=== PATIENT | female | born 1990 | race Caucasian/White ===

== ENCOUNTER 2017-11-03 17:47 | Emergency (ER) | payer OTHER ==
[~2017-11-03] VITALS: Ht 162.6 cm; Wt 61.2 kg
[~2017-11-03 17:47] MED LIST: SEPTRA DS TABLE1 TAB PO
[2017-11-03] MEDS ORDERED: KETO10TA2 PO (22:18)
== END 2017-11-03 22:37 | disposition home or self-care (01) ==
LOC: ER 17:47
DX: G44.209 Tension-type headache, unspecified, not intractable (principal); F15.10 Other stimulant abuse, uncomplicated

== ENCOUNTER 2017-11-30 15:13 | Emergency (ER) | payer OTHER ==
[~2017-11-30] VITALS: Ht 162.6 cm; Wt 61.2 kg
[~2017-11-30 15:13] MED LIST changes: +KETO10TA2 PO
[2017-11-30] MEDS ORDERED: BENZONATATE200 M1 (15:33)
[2017-11-30] MEDS ORDERED: ALBUTEROL2.5 MG/3 M (15:34)
== END 2017-11-30 20:33 | disposition home or self-care (01) ==
LOC: ER 15:13
DX: N30.80 Other cystitis without hematuria (principal); J45.998 Other asthma; J32.0 Chronic maxillary sinusitis

== ENCOUNTER 2018-01-09 05:21 | Emergency (ER) | payer OTHER ==
[~2018-01-09] VITALS: Ht 165.1 cm; Wt 56.7 kg
[~2018-01-09 05:21] MED LIST changes: +ALBUTEROL2.5 MG/3 M; +BENZONATATE200 M1
[2018-01-09] MEDS ORDERED: ZITHROMAX500 MG PO (07:51)
[2018-01-09] MEDS ORDERED: FLONASE ALLERG9.9 ML NASAL (07:51)
[2018-01-09] MEDS ORDERED: LORATADINE10 M2 PO (07:51)
[2018-01-09] MEDS ORDERED: KETO10TA2 PO (07:51)
== END 2018-01-09 08:01 | disposition home or self-care (01) ==
LOC: ER 05:21
DX: J35.01 Chronic tonsillitis (principal)

== ENCOUNTER 2018-04-26 13:26 | Emergency (ER) | payer OTHER ==
[~2018-04-26] VITALS: Ht 162.6 cm; Wt 61.2 kg
[~2018-04-26 13:26] MED LIST changes: +FLONASE ALLERG9.9 ML NASAL; +LORATADINE10 M2 PO; +ZITHROMAX500 MG PO
[2018-04-26] MEDS ORDERED: VYVANSE40 M1 (13:32)
== END 2018-04-26 22:01 | disposition home or self-care (01) ==
LOC: ER 13:26
DX: K29.00 Acute gastritis without bleeding (principal); K59.09 Other constipation

== ENCOUNTER 2018-11-01 15:18 | Emergency (ER) | payer OTHER ==
[~2018-11-01] VITALS: Ht 162.6 cm; Wt 59.0 kg
[~2018-11-01 15:18] MED LIST changes: +VYVANSE40 M1
== END 2018-11-01 18:43 | disposition home or self-care (01) ==
LOC: ER 15:18
DX: N30.80 Other cystitis without hematuria (principal)

== ENCOUNTER 2018-12-05 17:20 | Emergency (ER) | payer OTHER ==
[~2018-12-05] VITALS: Ht 165.1 cm; Wt 66.7 kg
[2018-12-05] MEDS ORDERED: VALTREX1000 MG (17:27)
[2018-12-05] MEDS ORDERED: BACTRIM DS TAB1 EACH PO (18:34)
== END 2018-12-05 18:39 | disposition home or self-care (01) ==
LOC: ER 17:20
DX: R31.0 Gross hematuria (principal); N39.0 Urinary tract infection, site not specified

== ENCOUNTER 2018-12-10 11:15 | Emergency (ER) | payer OTHER ==
[~2018-12-10] VITALS: Ht 162.6 cm; Wt 59.0 kg
[~2018-12-10 11:15] MED LIST changes: +BACTRIM DS TAB1 EACH PO; +VALTREX1000 MG
== END 2018-12-10 15:06 | disposition home or self-care (01) ==
LOC: ER 11:15
DX: N39.0 Urinary tract infection, site not specified (principal); B96.89 Other specified bacterial agents as the cause of diseases classified elsewhere

== ENCOUNTER → 2020-08-22 | Outpatient (CLI) | payer OTHER | END | disposition home or self-care (01) | LOC: PRENATAL 10:00 | PROVIDERS: ATTEND Obstetrics & Gynecology Maternal & Fetal Medicine | DX: Z36.89 Encounter for other specified antenatal screening (principal); O36.80X1 Pregnancy with inconclusive fetal viability, fetus 1; Z3A.11 11 weeks gestation of pregnancy ==

== ENCOUNTER → 2020-10-15 | Outpatient (CLI) | payer OTHER | END | disposition home or self-care (01) | LOC: PRENATAL 08:00 | PROVIDERS: ATTEND Obstetrics & Gynecology Maternal & Fetal Medicine | DX: O35.0XX1 Maternal care for (suspected) central nervous system malformation in fetus, fetus 1 (principal); O35.3XX1 Maternal care for (suspected) damage to fetus from viral disease in mother, fetus 1; O98.512 Other viral diseases complicating pregnancy, second trimester; Z36.89 Encounter for other specified antenatal screening; Z3A.19 19 weeks gestation of pregnancy ==

== ENCOUNTER 2021-02-20 15:00 | Inpatient (IN) | payer OTHER ==
[~2021-02-20] VITALS: Ht 162.6 cm; Wt 3.2 kg
[2021-03-03] MEDS ORDERED: PRENATAL TABLE1 EAC1 PO (07:56)
[2021-03-03] MEDS ORDERED: VALACYCLOVIR500 MG (11:23)
[2021-03-07] MEDS ORDERED: SURFAK240 M1 PO (10:17)
[2021-03-07] MEDS ORDERED: IBU800 MG PO (10:17)
== END 2021-03-07 13:06 | disposition home or self-care (01) | DRG 788 ==
LOC: SURH 02-24 15:00 → LDR 03-03 07:52 → SURG-SUITE 03-03 07:52 → LDR 03-03 07:54 → SURG-SUITE 03-04 00:30
PROVIDERS: ADMIT Specialist; ATTEND Specialist
PROC: 3E033VJ Introduction of Other Hormone into Peripheral Vein, Percutaneous Approach (ICD-10-PCS; 2021-03-03)
PROC: 4A1HXFZ Monitoring of Products of Conception, Cardiac Rhythm, External Approach (ICD-10-PCS; 2021-03-03)
PROC: 10D00Z1 Extraction of Products of Conception, Low, Open Approach (ICD-10-PCS; principal; 2021-03-03 22:00)
DX: O62.1 Secondary uterine inertia (principal); Z37.0 Single live birth; Z3A.39 39 weeks gestation of pregnancy

== ENCOUNTER 2021-02-27 03:51 | Outpatient (CLI) | payer OTHER | END 2021-02-27 04:10 | disposition left against medical advice (07) | LOC: OBS/DEL 03:51 | PROVIDERS: ATTEND Specialist | DX: O26.893 Other specified pregnancy related conditions, third trimester (principal); R10.2 Pelvic and perineal pain; Z3A.38 38 weeks gestation of pregnancy ==

== ENCOUNTER → 2022-09-28 | Outpatient (CLI) | payer OTHER ==
[~2022-09-28] MED LIST changes: +IBU800 MG PO; +PRENATAL TABLE1 EAC1 PO; +SURFAK240 M1 PO; +VALACYCLOVIR500 MG
== END | disposition home or self-care (01) ==
LOC: PRENATAL 14:12
PROVIDERS: ATTEND Obstetrics & Gynecology Maternal & Fetal Medicine
DX: Z76.1 Encounter for health supervision and care of foundling (principal)

== ENCOUNTER 2022-10-07 13:33 | Outpatient (CLI) | payer OTHER | END 2022-10-07 14:49 | disposition home or self-care (01) | LOC: PRENATAL 13:33 | PROVIDERS: ATTEND Obstetrics & Gynecology Maternal & Fetal Medicine | DX: O36.80X0 Pregnancy with inconclusive fetal viability, not applicable or unspecified (principal); O34.219 Maternal care for unspecified type scar from previous cesarean delivery; Z3A.12 12 weeks gestation of pregnancy ==

== ENCOUNTER 2022-12-01 12:26 | Outpatient (CLI) | payer OTHER | END 2022-12-01 14:36 | disposition home or self-care (01) | LOC: PRENATAL 12:26 | PROVIDERS: ATTEND Obstetrics & Gynecology Maternal & Fetal Medicine | DX: O35.9XX0 Maternal care for (suspected) fetal abnormality and damage, unspecified, not applicable or unspecified (principal); O35.3XX0 Maternal care for (suspected) damage to fetus from viral disease in mother, not applicable or unspecified; O34.219 Maternal care for unspecified type scar from previous cesarean delivery; Z3A.19 19 weeks gestation of pregnancy ==

== ENCOUNTER 2023-02-25 13:49 | Outpatient (CLI) | payer OTHER | END 2023-02-25 14:44 | disposition home or self-care (01) | LOC: PRENATAL 13:49 | PROVIDERS: ATTEND Obstetrics & Gynecology Maternal & Fetal Medicine | DX: O26.849 Uterine size-date discrepancy, unspecified trimester (principal); O36.8199 Decreased fetal movements, unspecified trimester, other fetus; O34.219 Maternal care for unspecified type scar from previous cesarean delivery; Z3A.32 32 weeks gestation of pregnancy ==